=== PATIENT | female | born 1970 | race African-American/Black ===

== ENCOUNTER 2017-08-07 12:27 | Outpatient (CLI) | payer OTHER ==
--- NOTE | 2017-08-07 13:17 | MMO ---
BILATERAL DIGITAL SCREENING MAMMOGRAMS: Date: 08/07/17 HISTORY: 47-year-old female presents for digital screening mammogram. COMPARISON: 04/17/11. FINDINGS: This patient's mammogram was interpreted with the assistance of computer-aided detection. Minimal scattered areas of fibroglandular changes in both breasts. There are bilateral typically nehemias gn calcifications. No direct or indirect evidence of malignancy in either breast. IMPRESSION: BIRADS 2: Benign Finding(s) Continue annual follow-up mammograms. POS: JAM
== END 2017-08-07 12:28 | disposition home or self-care (01) ==
LOC: SCSMAMMO 12:27
PROVIDERS: ATTEND Nurse Practitioner Family
DX: Z12.31 Encounter for screening mammogram for malignant neoplasm of breast (principal)
CPT/HCPCS: 77067

== ENCOUNTER 2018-06-18 06:55 | Day surgery (SDC) | payer OTHER ==
[2018-06-18] MEDS ORDERED: Bacitracin Zinc Ointment 30 gm TUBE ONE (09:30)
[2018-06-18] MEDS ORDERED: Lidocaine 1% w/Epinephrine 1:100K 20 ML VIAL ONE (09:30)
[2018-06-18] MEDS ORDERED: Famotidine/PF 20 mg/2ml Vial ONE (09:39)
[2018-06-18] MEDS ORDERED: Midazolam HCl 2 mg/2 ml Vial ONE (09:39)
[2018-06-18] MEDS ORDERED: Fentanyl 100 MCG/2 ML VIAL ONE (09:39)
[2018-06-18] MEDS ORDERED: Lidocaine 1% PF 5 ML VIAL ONE (13:05)
[2018-06-18] MEDS ORDERED: Ketorolac Tromethamine 30 MG/ML VIAL ONE (13:05)
[2018-06-18] MEDS ORDERED: Succinylcholine Chloride 20 MG/ML 10 ml SYRINGE FS ONE (13:05)
[2018-06-18] MEDS ORDERED: Ondansetron PF 4 MG/2 ML Vial ONE (13:05)
[2018-06-18] MEDS ORDERED: PROPOFOL 200 MG/20 ML VIAL ONE (13:05)
--- NOTE | 2018-06-19 11:33 | OP ---
DATE OF PROCEDURE: 06/18/2018 PREOPERATIVE DIAGNOSIS: Right facial lipoma, 8 x 8 cm. PROCEDURE PERFORMED: Wide local excision of facial lipoma with complex closure, 10 x 10 cm. ESTIMATED BLOOD LOSS: 50 mL. COMPLICATIONS: None. ANESTHESIA: LMA. DESCRIPTION OF PROCEDURE: The patient was taken to the operating room and placed supine on the table. LMA anesthesia was obtained by the Anesthesia staff. Following this, a large facial lipoma located over the right forehead area was extended underneath the hairline. An elliptical incision was created excising 1.5-cm strip of tissue along with this large facial lipoma, which extended down to the pericranial layer of the scalp. The flap was removed. The excessive tissue was then reapproximated, and closure was made of multiple layers of the galea aponeurosis, the muscle layer as well as the subcutaneous layer. The skin was then closed using a 4-0 nylon stitch. The patient tolerated the procedure well. Job ID: [id number]
== END 2018-06-18 12:36 | disposition home or self-care (01) ==
LOC: SDC 06:55
PROVIDERS: ATTEND Otolaryngology Plastic Surgery within the Head & Neck
PROC: 0KB00ZZ Excision of Head Muscle, Open Approach (ICD-10-PCS; principal; 2018-06-18)
DX: D17.0 Benign lipomatous neoplasm of skin and subcutaneous tissue of head, face and neck (principal); G43.909 Migraine, unspecified, not intractable, without status migrainosus; I10 Essential (primary) hypertension; Z79.1 Long term (current) use of non-steroidal anti-inflammatories (NSAID); Z79.899 Other long term (current) drug therapy
CPT/HCPCS: 36415; 85014; 88304; 93005; 93010; J1885; J2001; J2250; J2405; J2704; J3010; S0028

== ENCOUNTER 2018-08-13 11:23 | Outpatient (CLI) | payer OTHER ==
--- NOTE | 2018-08-18 13:23 | MMO ---
Bilateral MAMMO Bilat Screen [facility]. CLINICAL HISTORY: Patient is 48 years old and is seen for screening. The patient has no family history of breast cancer. The patient has no personal history of cancer. The patient has a history of bilateral Breast reduction. VIEWS: The views performed were: bilateral craniocaudal; bilateral mediolateral oblique; and bilateral exaggerated craniocaudal. FILMS COMPARED: The present examination has been compared to prior imaging studies performed at [facility] on 10/07/2012, 06/18/2014, 07/11/2015 and 07/31/2016, and at [facility] on 04/17/2011 and 04/24/2011. This study has been interpreted with the assistance of computer-aided detection. MAMMOGRAM FINDINGS: There are scattered fibroglandular densities. There are benign appearing calcifications seen in both breasts. There are no suspicious masses, calcifications or areas of architectural distortion. IMPRESSION: THERE IS NO MAMMOGRAPHIC EVIDENCE OF MALIGNANCY. A ROUTINE FOLLOW-UP MAMMOGRAM IN 1 YEAR IS RECOMMENDED. ACR BI-RADS Category 2 - Benign finding MAMMOGRAPHY NOTE: 1. A negative mammogram report should not delay a biopsy if a dominant of clinically suspicious mass is present. 2. Approximately 10% to 15% of breast cancers are not detected by mammography. 3. Adenosis and dense breasts may obscure an underlying neoplasm.
== END 2018-08-13 11:24 | disposition home or self-care (01) ==
LOC: BICMAMMO 11:23
PROVIDERS: ATTEND Family Medicine
DX: Z12.31 Encounter for screening mammogram for malignant neoplasm of breast (principal)
CPT/HCPCS: 77067

== ENCOUNTER 2020-11-09 09:13 | Outpatient (CLI) | payer OTHER | END 2020-11-09 09:14 | disposition home or self-care (01) | LOC: BICMAMMO 09:13 | PROVIDERS: ATTEND Nurse Practitioner Family | DX: Z12.31 Encounter for screening mammogram for malignant neoplasm of breast (principal); Z98.890 Other specified postprocedural states | CPT/HCPCS: 77067 ==